=== PATIENT | male | born 1985 | race Hispanic/Latino ===

== ENCOUNTER 2019-11-01 23:09 | Emergency (ER) | payer OTHER ==
[2019-11-01 23:55] LABS: RAPID GROUP A STREP NEGATIVE (NEGATIVE)
== END 2019-11-02 00:31 | disposition home or self-care (01) ==
LOC: EDH 23:09
DX: J11.1 Influenza due to unidentified influenza virus with other respiratory manifestations (principal); Z90.49 Acquired absence of other specified parts of digestive tract
CPT/HCPCS: 87804; 87880

== ENCOUNTER 2024-07-31 22:42 | Emergency (ER) | payer SELFPAY ==
[~2024-07-31] VITALS: Ht 182.9 cm; Wt 122.5 kg
[2024-07-31 22:49] VITALS: BP 145/101; PULSE 92; RESP 20; TEMP 98.7; O2SAT 100
[2024-07-31] MEDS ORDERED: AMOX-426 PO (23:57)
[2024-08-01] MEDS: AMOX/CLAV 875/125MG TAB PO ONE (00:04)
[2024-08-01] MEDS: teTANUS/diphthERIA TOXOID [ADULT] 0.5 ML VIAL IM ONE (00:08)
[2024-08-01 01:02] LABS: HIV 1&2 ANTIBODY Non-Reactive (Negative); HIV-1 p24 Antigen Non-Reactive (Negative)
[2024-08-02 06:23] LABS: HEPATITIS A IGM ANTIBODY Non-Reactive (Nonreactive); HEPATITIS B CORE IGM ANTIBODY Non-Reactive (Negative); HEPATITIS B SURFACE ANTIGEN Non-Reactive (Nonreactive); HEPATITIS C ANTIBODY Non-Reactive (Nonreactive)
== END 2024-08-01 00:23 | disposition home or self-care (01) ==
LOC: EDH 22:42
DX: S61.552A Open bite of left wrist, initial encounter (principal); Z90.49 Acquired absence of other specified parts of digestive tract; Y04.1XXA Assault by human bite, initial encounter; Y93.89 Activity, other specified; Y92.098 Other place in other non-institutional residence as the place of occurrence of the external cause; Y99.8 Other external cause status
CPT/HCPCS: 36415; 73110; 80074; 86701; 87390; 90471; 90714